=== PATIENT | male | born 1945 | race Caucasian/White ===

== ENCOUNTER → 2017-10-22 | Outpatient (CLI) | payer OTHER | END | disposition home or self-care (01) | LOC: WOUND MED 09:26 | DX: L98.492 Non-pressure chronic ulcer of skin of other sites with fat layer exposed (principal); L02.414 Cutaneous abscess of left upper limb; S51.012D Laceration without foreign body of left elbow, subsequent encounter | CPT/HCPCS: 11042; A4554; A4930; A6196; A6212; A6216; A6220 ==

== ENCOUNTER → 2017-10-29 | Outpatient (CLI) | payer OTHER | END | disposition home or self-care (01) | LOC: WOUND MED 09:50 | DX: L98.492 Non-pressure chronic ulcer of skin of other sites with fat layer exposed (principal); L02.414 Cutaneous abscess of left upper limb; S51.012D Laceration without foreign body of left elbow, subsequent encounter | CPT/HCPCS: 11042; A4554; A4930; A6216; A6219 ==

== ENCOUNTER → 2017-11-05 | Outpatient (CLI) | payer OTHER | END | disposition home or self-care (01) | LOC: WOUND MED 09:03 | DX: L98.492 Non-pressure chronic ulcer of skin of other sites with fat layer exposed (principal); L02.414 Cutaneous abscess of left upper limb; S51.012D Laceration without foreign body of left elbow, subsequent encounter | CPT/HCPCS: 11042; A4554; A4930; A6216; A6219 ==

== ENCOUNTER → 2017-11-12 | Outpatient (CLI) | payer OTHER | END | disposition home or self-care (01) | LOC: WOUND MED 09:28 | DX: L98.492 Non-pressure chronic ulcer of skin of other sites with fat layer exposed (principal); L02.414 Cutaneous abscess of left upper limb | CPT/HCPCS: 11042; A4554; A4930; A6196; A6216; A6219 ==

== ENCOUNTER → 2017-11-19 | Outpatient (CLI) | payer OTHER | END | disposition home or self-care (01) | LOC: WOUND MED 09:30 | DX: L98.492 Non-pressure chronic ulcer of skin of other sites with fat layer exposed (principal); L02.414 Cutaneous abscess of left upper limb | CPT/HCPCS: 11042; A4554; A4930; A6196; A6216; A6219 ==

== ENCOUNTER → 2017-11-26 | Outpatient (CLI) | payer OTHER | END | disposition home or self-care (01) | LOC: EDSTATUS 09:22 → WOUND MED 10:27 | DX: L98.492 Non-pressure chronic ulcer of skin of other sites with fat layer exposed (principal); L02.414 Cutaneous abscess of left upper limb | CPT/HCPCS: 11042; A4554; A4930; A6196; A6216; A6219 ==

== ENCOUNTER → 2017-12-03 | Outpatient (CLI) | payer OTHER | END | disposition home or self-care (01) | LOC: WOUND MED 09:24 | DX: L98.492 Non-pressure chronic ulcer of skin of other sites with fat layer exposed (principal); L02.414 Cutaneous abscess of left upper limb | CPT/HCPCS: 11042; A4554; A4930; A6212; A6216; A6219 ==

== ENCOUNTER → 2017-12-10 | Outpatient (CLI) | payer OTHER | END | disposition home or self-care (01) | LOC: WOUND MED 09:30 | DX: L98.492 Non-pressure chronic ulcer of skin of other sites with fat layer exposed (principal); L02.414 Cutaneous abscess of left upper limb | CPT/HCPCS: 11042; A4554; A4930; A6212; A6216; A6219 ==

== ENCOUNTER → 2017-12-17 | Outpatient (CLI) | payer OTHER | END | disposition home or self-care (01) | LOC: WOUND MED 09:47 | DX: L98.492 Non-pressure chronic ulcer of skin of other sites with fat layer exposed (principal); L02.414 Cutaneous abscess of left upper limb | CPT/HCPCS: 11042; A4554; A4930; A6212; A6216; A6219 ==

== ENCOUNTER → 2017-12-24 | Outpatient (CLI) | payer OTHER | END | disposition home or self-care (01) | LOC: WOUND MED 09:16 | DX: L98.492 Non-pressure chronic ulcer of skin of other sites with fat layer exposed (principal); L02.414 Cutaneous abscess of left upper limb | CPT/HCPCS: G0463; A4554; A4930; A6216 ==